=== PATIENT | female | born 1995 | race Caucasian/White ===

== ENCOUNTER 2020-02-27 14:22 | Inpatient (IN) ==
[2020-02-27 15:08] LABS: Amorphous Sediment,Urine Few per hpf (None-Few); Bacteria,Urine Few per hpf (None-Few); Bilirubin,Urine Negative (Negative); Blood,Urine Negative (Negative); Clarity,Urine Clear (Clear); Color,Urine Light-Yellow (Yellow); Glucose,Urine (UA) Normal (Normal); Ketones,Urine Negative (Negative); Leukocyte Esterase,Urine Small (Negative); Nitrite,Urine Negative (Negative); PH,Urine 6.5 pH Units (5.0-8.0); Protein,Urine Negative (Neg-Trace); RBC,Urine 0-3 per hpf (0-3); Specific Gravity,Urine 1.018 (1.010-1.025); Squamous Epithelial Cell,Urine Few per hpf (None-Few); Urobilinogen,Urine Normal (Normal)
[2020-02-27 15:11] LABS: Basophils # 0.1 K/mcL (0.0-0.2); Basophils % 0.6 %; Eosinophils # 0.3 K/mcL (0.0-0.6); Eosinophils % 1.8 %; Hematocrit 47.6 % (35.3-44.9); Hemoglobin 15.6 g/dL (11.5-15.4); Immature Granulocytes % 0.3 % (0-4); Lymphocytes # 3.5 K/mcL (0.6-4.6); Lymphocytes % 20.6 %; Mean Corpuscular HGB Conc 32.8 g/dL (31.6-35.5); Mean Corpuscular Hemoglobin 30.6 pg (28.0-33.3); Mean Corpuscular Volume 93.5 fL (83.0-100.0); Mean Platelet Volume 9.8 fL (9.4-12.4); Monocytes # 1.2 K/mcL (0.0-1.3); Monocytes % 6.8 %; Neutrophils # 11.9 K/mcL (1.6-8.9); Platelet Count 349 K/mcL (140-400); Red Blood Count 5.09 M/mcL (3.82-4.97); Red Cell Distribution Width 12.9 % (11.5-14.5); Segmented Neutrophils % 69.9 %
[2020-02-27 15:16] LABS: Amphetamine Screen,Urine Negative ng/mL (Cutoff=1000); Barbiturate Screen,Urine Negative ng/mL (Cutoff=200); Benzodiazepines Screen,Urine Negative ng/mL (Cutoff=200); Cannabinoid Screen,Urine Negative ng/mL (Cutoff = 50); Cocaine Screen,Urine Negative ng/mL (Cutoff= 300); Opiate Screen,Urine Negative ng/mL (Cutoff=300); Phencyclidine Screen,Urine Negative ng/mL (Cutoff=25)
[2020-02-27 15:29] LABS: Acetaminophen < 10 mcg/mL (10-20); BUN/Creatinine Ratio 18 (6-26); Blood Urea Nitrogen 13 mg/dL (6-20); Calcium 9.6 mg/dL (8.6-10.3); Carbon Dioxide 25 mEq/L (23-29); Chloride 104 mEq/L (98-107); Cholesterol 195 mg/dL (< 200); Ethanol < 10 mg/dL (Less than 10); Glucose 96 mg/dL (70-105); HDL Cholesterol 49 mg/dL (40-59); LDL Cholesterol,Calculated 103 mg/dL (< 100); Osmolality,Calculated 286 (280-300); Salicylate < 2.5 mg/dL (15.0-30.0); Sodium 138 mEq/L (136-145); Triglycerides 213 mg/dL (< 150); eGFR For African Americans > 60 (> 60); eGFR For Non-African Americans > 60 (> 60)
[2020-02-27 16:19] LABS: Estimated Average Glucose 111 mg/dl
[2020-02-27] MEDS ORDERED: *HR* LORazepam 2 MG/ML VIAL IM PRN (17:37)
[2020-02-27] MEDS ORDERED: Mag Hydrox/Al Hydrox/Simeth 30 ML UDC PO PRN (17:37)
[2020-02-27] MEDS ORDERED: haloperidoL 5 MG TABLET PO PRN (17:37)
[2020-02-27] MEDS ORDERED: hydrOXYzine pamoate 25 MG CAPSULE PO PRN (17:37)
[2020-02-27] MEDS ORDERED: traZODone 50 MG TABLET PO PRN (17:37)
[2020-02-27] MEDS ORDERED: *HR* LORazepam 1 MG TABLET PO PRN (17:37)
[2020-02-27] MEDS ORDERED: Haloperidol Lactate 5 MG/ML VIAL IM PRN (17:37)
[2020-02-27] MEDS ORDERED: MOM Conc 10 ML UD.LIQ PO PRN (17:37)
[2020-02-27] MEDS ORDERED: methocarbamoL 500 MG TABLET PO PRN (22:32)
[2020-02-27] MEDS: Loratadine 10 MG TABLET PO SCH (23:06)
[2020-02-27] MEDS: Gabapentin 300 MG CAPSULE PO PRN (23:10)
[2020-02-28] MEDS: Gabapentin 300 MG CAPSULE PO PRN (05:02)
[2020-02-28] MEDS: Acetaminophen 325 MG TABLET PO PRN (05:34)
[2020-02-28] MEDS: Aspirin Enteric Coated 81 MG Tablet PO SCH (09:00)
[2020-02-28] MEDS: modafiniL 100 MG TABLET PO SCH (09:00)
[2020-02-28] MEDS: BuPROPion XL (24 HR) 150 MG TABLET PO SCH (13:06)
[2020-02-28] MEDS: Loratadine 10 MG TABLET PO SCH (20:12)
[2020-02-29] MEDS: Gabapentin 300 MG CAPSULE PO PRN (03:54)
[2020-02-29] MEDS: Acetaminophen 325 MG TABLET PO PRN (03:54)
[2020-02-29 09:06] VITALS: BP 107/70
[2020-02-29] MEDS: Aspirin Enteric Coated 81 MG Tablet PO SCH (09:12)
[2020-02-29] MEDS: BuPROPion XL (24 HR) 150 MG TABLET PO SCH (09:12)
[2020-02-29] MEDS: modafiniL 100 MG TABLET PO SCH (09:13)
== END 2020-02-29 13:05 | disposition home or self-care (01) | DRG 751 ==
LOC: EMEROOARM 14:22 → 1ANU 17:13
PROVIDERS: ADMIT Psychiatry & Neurology Psychiatry; ATTEND Psychiatry & Neurology Psychiatry